=== PATIENT | female | born 1995 | race Caucasian/White ===

== ENCOUNTER 2021-07-31 06:59 | Inpatient (IN) ==
[2021-07-31] MEDS ORDERED: *HR* FentaNYL (PF) 100 MCG/2 ML VIAL IVP ONE (08:19)
[2021-07-31] MEDS ORDERED: methylPREDNISolone 125 MG/2 ML VIAL IVP ONE (08:19)
[2021-07-31 08:46] LABS: Basophils # 0.1 K/mcL (0.0-0.2); Basophils % 0.6 %; Eosinophils # 0.1 K/mcL (0.0-0.6); Eosinophils % 0.8 %; Hematocrit 38.9 % (35.3-44.9); Hemoglobin 11.8 g/dL (11.5-15.4); Immature Granulocytes % 0.3 % (0-4); Lymphocytes # 2.6 K/mcL (0.6-4.6); Lymphocytes % 22.4 %; Mean Corpuscular HGB Conc 30.3 g/dL (31.6-35.5); Mean Corpuscular Hemoglobin 22.4 pg (28.0-33.3); Mean Platelet Volume 9.4 fL (9.4-12.4); Monocytes # 0.7 K/mcL (0.0-1.3); Monocytes % 6.3 %; Platelet Count 421 K/mcL (140-400); Red Blood Count 5.26 M/mcL (3.82-4.97); Red Cell Distribution Width 18.2 % (11.5-14.5); Segmented Neutrophils % 69.6 %; White Blood Count 11.5 K/mcL (4.3-11.1)
[2021-07-31 08:53] LABS: Prothrombin Time 11.4 Seconds (9.4-12.1)
[2021-07-31 08:56] LABS: Activated Partial Thrombo Time 31.4 Seconds (26.0-36.0)
[2021-07-31 09:02] LABS: BUN/Creatinine Ratio 22 (6-26); Blood Urea Nitrogen 17 mg/dL (6-20); Calcium 9.3 mg/dL (8.6-10.3); Carbon Dioxide 25 mEq/L (23-29); Chloride 101 mEq/L (98-107); Glucose 93 mg/dL (70-105); Osmolality,Calculated 283 (280-300); Potassium 3.7 mEq/L (3.5-5.1); Sodium 136 mEq/L (136-145); eGFR For African Americans > 60 (> 60); eGFR For Non-African Americans > 60 (> 60)
[2021-07-31] MEDS ORDERED: Naloxone 0.4 MG/ML INJ IVP PRN (10:32)
[2021-07-31] MEDS ORDERED: Ondansetron 4 MG/2 ML VIAL IVP PRN (10:32)
[2021-07-31] MEDS: *HR* HYDROmorphone 2 MG/ML SYRINGE IVP PRN ×2 (15:02→20:32)
[2021-07-31] MEDS: methocarbamoL 500 MG TABLET PO SCH ×2 (15:38→20:33)
[2021-07-31] MEDS: *HR* Heparin 5,000 UNIT/ML VIAL SQ SCH (16:59)
[2021-07-31] MEDS: Gabapentin 100 MG CAPSULE PO SCH (20:33)
[2021-08-01] MEDS: methocarbamoL 500 MG TABLET PO SCH ×3 (04:27→22:32)
[2021-08-01] MEDS: *HR* Heparin 5,000 UNIT/ML VIAL SQ SCH ×2 (04:41→22:32)
[2021-08-01 06:05] LABS: Basophils # 0.1 K/mcL (0.0-0.2); Basophils % 0.8 %; Eosinophils # 0.1 K/mcL (0.0-0.6); Eosinophils % 0.6 %; Hematocrit 36.8 % (35.3-44.9); Hemoglobin 11.4 g/dL (11.5-15.4); Immature Granulocytes % 0.3 % (0-4); Lymphocytes # 3.3 K/mcL (0.6-4.6); Mean Corpuscular Hemoglobin 22.8 pg (28.0-33.3); Mean Corpuscular Volume 73.5 fL (83.0-100.0); Mean Platelet Volume 9.7 fL (9.4-12.4); Monocytes # 1.1 K/mcL (0.0-1.3); Monocytes % 10.3 %; Neutrophils # 6.3 K/mcL (1.6-8.9); Platelet Count 424 K/mcL (140-400); Red Blood Count 5.01 M/mcL (3.82-4.97); Red Cell Distribution Width 18.5 % (11.5-14.5)
[2021-08-01 06:26] LABS: BUN/Creatinine Ratio 21 (6-26); Blood Urea Nitrogen 15 mg/dL (6-20); Calcium 9.3 mg/dL (8.6-10.3); Carbon Dioxide 26 mEq/L (23-29); Chloride 103 mEq/L (98-107); Glucose 97 mg/dL (70-105); Osmolality,Calculated 285 (280-300); Phosphorous 3.8 mg/dL (2.7-4.5); Potassium 3.8 mEq/L (3.5-5.1); Sodium 137 mEq/L (136-145); eGFR For African Americans > 60 (> 60); eGFR For Non-African Americans > 60 (> 60)
[2021-08-01] MEDS: *HR* HYDROmorphone 2 MG/ML SYRINGE IVP PRN (08:04)
[2021-08-01] MEDS ORDERED: predniSONE 20 MG TABLET PO SCH (09:00)
[2021-08-01] MEDS ORDERED: Gabapentin 100 MG CAPSULE PO SCH (12:00)
[2021-08-01] MEDS ORDERED: Scopolamine Patch 1.5 MG PATCH.TD72 TD ONE (14:47)
[2021-08-01] MEDS ORDERED: Acetaminophen IV 1,000 MG/100 ML BAG IVPB ONE (14:47)
[2021-08-01] MEDS ORDERED: Pregabalin 75 MG CAPSULE PO ONE (14:47)
[2021-08-01] MEDS ORDERED: *HR* OxyCODONE Immed Rel 5 MG TABLET PO ONE (14:50)
[2021-08-01] MEDS ORDERED: Famotidine 20 MG TABLET PO ONE (14:55)
[2021-08-01] MEDS ORDERED: *HR* Propofol 200 MG/20 ML VIAL IVP ONE ×2 (15:02→15:03)
[2021-08-01] MEDS ORDERED: *HR* Succinylcholine 200 MG/10 ML VIAL IVP ONE (15:02)
[2021-08-01] MEDS ORDERED: *HR* Midazolam HCl 2 MG/2 ML VIAL ONE (15:02)
[2021-08-01] MEDS ORDERED: *HR* FentaNYL (PF) 100 MCG/2 ML VIAL ONE (15:02)
[2021-08-01] MEDS ORDERED: Lidocaine -MPF 2% 5 ML VIAL ONE (15:02)
[2021-08-01] MEDS: tiZANidine 4 MG TABLET PO SCH ×2 (15:13→22:32)
[2021-08-01] MEDS ORDERED: *HR* Remifentanil 1 MG VIAL IVP ONE (15:15)
[2021-08-01] MEDS ORDERED: *HR* HYDROmorphone PF 0.5 MG/0.5 ML SYRINGE IVP PRN (15:21)
[2021-08-01] MEDS ORDERED: *HR* Meperidine 25 MG/ML SYRINGE IVP PRN (15:21)
[2021-08-01] MEDS ORDERED: Metoclopramide 10 MG/2 ML VIAL IVP PRN (15:21)
[2021-08-01] MEDS ORDERED: Albuterol 2.5 MG/3 ML NEBULIZER IH PRN (15:21)
[2021-08-01] MEDS ORDERED: *HR* Labetalol 20 MG/4 ML SYRINGE IVP PRN (15:21)
[2021-08-01] MEDS ORDERED: Ipratropium Neb 0.5 MG NEBULIZER IH PRN (15:21)
[2021-08-01] MEDS ORDERED: Menthol 1 EACH LOZENGE PO PRN (15:21)
[2021-08-01] MEDS ORDERED: Ondansetron 4 MG/2 ML VIAL IVP PRN ×2 (15:21→21:29)
[2021-08-01] MEDS ORDERED: Promethazine 6.25 MG in Water for inj. (sterile) 20 ML IVPB PRN (15:21)
[2021-08-01] MEDS ORDERED: *HR* OxyCODONE Immed Rel 5 MG TABLET PO PRN (15:21)
[2021-08-01] MEDS ORDERED: Ondansetron 4 MG/2 ML VIAL ONE (16:05)
[2021-08-01] MEDS ORDERED: Polymyxin B Sulfate 500,000 UNIT, Sodium Chloride IRRigation 1,000 ML IR ONE ×2 (16:30→17:30)
[2021-08-01] MEDS ORDERED: *HR* Rocuronium Bromide 50 MG/5 ML VIAL ONE (17:09)
[2021-08-01] MEDS ORDERED: Vancomycin 1,000 MG VIAL ONE (17:15)
[2021-08-01] MEDS ORDERED: *HR* HYDROMORPHONE 2 MG/ML VIAL ONE (18:19)
[2021-08-01] MEDS: *HR* FentaNYL (PF) 100 MCG/2 ML VIAL IVP PRN ×4 (20:11→20:34)
[2021-08-01] MEDS ORDERED: Acetaminophen 325 MG TABLET PO PRN (21:29)
[2021-08-01] MEDS ORDERED: Ringers Solution, Lactated 1,000 ML IVC SCH (21:29)
[2021-08-01] MEDS ORDERED: Naloxone 0.4 MG/ML INJ IVP PRN (21:29)
[2021-08-01] MEDS: *HR* OxyCODONE Immed Rel 5 MG TABLET PO PRN (22:11)
[2021-08-01] MEDS: Gabapentin 100 MG CAPSULE PO SCH (22:33)
[2021-08-02] MEDS ORDERED: CeFAZolin Syr 3,000MG/30 ML 3,000 MG/30 ML SYRINGE IVPB SCH
[2021-08-02] MEDS: *HR* HYDROcodone/Acet 5/325 mg TABLET PO PRN ×2 (00:41→21:04)
[2021-08-02] MEDS: *HR* OxyCODONE Immed Rel 5 MG TABLET PO PRN ×5 (02:49→23:40)
[2021-08-02 08:47] LABS: Basophils # 0.1 K/mcL (0.0-0.2); Basophils % 0.4 %; Hematocrit 32.9 % (35.3-44.9); Hemoglobin 10.4 g/dL (11.5-15.4); Immature Granulocytes % 0.3 % (0-4); Lymphocytes # 2.5 K/mcL (0.6-4.6); Mean Corpuscular HGB Conc 31.6 g/dL (31.6-35.5); Mean Corpuscular Volume 72.6 fL (83.0-100.0); Mean Platelet Volume 9.6 fL (9.4-12.4); Monocytes % 8.5 %; Neutrophils # 8.3 K/mcL (1.6-8.9); Platelet Count 394 K/mcL (140-400); Red Blood Count 4.53 M/mcL (3.82-4.97); Red Cell Distribution Width 17.9 % (11.5-14.5); Segmented Neutrophils % 69.8 %; White Blood Count 11.9 K/mcL (4.3-11.1)
[2021-08-02 09:14] LABS: BUN/Creatinine Ratio 19 (6-26); Blood Urea Nitrogen 13 mg/dL (6-20); Calcium 9.2 mg/dL (8.6-10.3); Carbon Dioxide 26 mEq/L (23-29); Chloride 101 mEq/L (98-107); Potassium 3.8 mEq/L (3.5-5.1); Sodium 137 mEq/L (136-145); eGFR For African Americans > 60 (> 60); eGFR For Non-African Americans > 60 (> 60)
[2021-08-02 09:56] LABS: Glucose 109 mg/dL (70-105); Osmolality,Calculated 285 (280-300)
[2021-08-02] MEDS ORDERED: ceFAZolin 3,000 MG in 0.9 % Sodium Chloride 100 ML IVPB ONE (10:00)
[2021-08-03] MEDS: *HR* OxyCODONE Immed Rel 5 MG TABLET PO PRN ×2 (04:46→13:33)
[2021-08-03 06:35] LABS: Basophils # 0.1 K/mcL (0.0-0.2); Basophils % 0.9 %; Eosinophils # 0.1 K/mcL (0.0-0.6); Eosinophils % 1.3 %; Hematocrit 32.3 % (35.3-44.9); Hemoglobin 9.8 g/dL (11.5-15.4); Immature Granulocytes % 0.1 % (0-4); Lymphocytes # 3.3 K/mcL (0.6-4.6); Lymphocytes % 37.7 %; Mean Corpuscular HGB Conc 30.3 g/dL (31.6-35.5); Mean Corpuscular Hemoglobin 22.8 pg (28.0-33.3); Mean Corpuscular Volume 75.1 fL (83.0-100.0); Mean Platelet Volume 9.5 fL (9.4-12.4); Monocytes % 11.6 %; Neutrophils # 4.2 K/mcL (1.6-8.9); Platelet Count 368 K/mcL (140-400); Red Cell Distribution Width 18.2 % (11.5-14.5); Segmented Neutrophils % 48.4 %; White Blood Count 8.6 K/mcL (4.3-11.1)
[2021-08-03 07:01] LABS: BUN/Creatinine Ratio 19 (6-26); Blood Urea Nitrogen 15 mg/dL (6-20); Calcium 9.1 mg/dL (8.6-10.3); Carbon Dioxide 29 mEq/L (23-29); Chloride 103 mEq/L (98-107); Glucose 93 mg/dL (70-105); Osmolality,Calculated 289 (280-300); Potassium 4.2 mEq/L (3.5-5.1); Sodium 139 mEq/L (136-145); eGFR For African Americans > 60 (> 60); eGFR For Non-African Americans > 60 (> 60)
[2021-08-03] MEDS: *HR* HYDROcodone/Acet 5/325 mg TABLET PO PRN (07:51)
[2021-08-03 14:12] VITALS: BP 107/68; PULSE 102; TEMP 97.9; O2SAT 96
== END 2021-08-03 15:29 | disposition home or self-care (01) | DRG 41 ==
LOC: 3BNU 06:59 → 3NENU 06:59 → EMEROOARM 06:59 → SUATTDRO 10:27 → 3NENU 11:38 → 4WAOSI 08-01 20:58
PROVIDERS: ADMIT Internal Medicine; ATTEND Family Medicine